=== PATIENT | male | born 1990 | race African-American/Black ===

== ENCOUNTER 2019-10-12 09:32 | Emergency (ER) | payer SELFPAY ==
[~2019-10-12] VITALS: Ht 190.5 cm; Wt 106.6 kg
[2019-10-12 09:36] VITALS: BP 119/69
[2019-10-12] MEDS ORDERED: IPRATROPIUM BROM 0.5 MG/2.5ML INH SOL NEB ONE (11:15)
[2019-10-12] MEDS ORDERED: ALBUTEROL SULF 2.5 MG/0.5ML(0.5%) NEB SOLN NEB ONE (11:15)
== END 2019-10-12 11:47 | disposition home or self-care (01) ==
LOC: ER 09:37
DX: J06.9 Acute upper respiratory infection, unspecified (principal)
CPT/HCPCS: 71046; 94640; 99283; J7611; J7644

== ENCOUNTER 2021-10-10 07:56 | Emergency (ER) | payer OTHER ==
[~2021-10-10] VITALS: Ht 190.5 cm; Wt 100.7 kg
[2021-10-10 08:17] VITALS: BP 129/89
== END 2021-10-10 08:34 | disposition home or self-care (01) ==
LOC: ER 07:56
DX: L03.317 Cellulitis of buttock (principal); F17.210 Nicotine dependence, cigarettes, uncomplicated

== ENCOUNTER 2022-03-15 06:16 | Emergency (ER) | payer OTHER ==
[~2022-03-15] VITALS: Ht 190.5 cm; Wt 98.9 kg
[2022-03-15 07:18] VITALS: BP 122/72
[2022-03-15] MEDS ORDERED: LIDOCAINE 1% HCL (LOCAL ANESTH.) INJ 20ML MDV ONE (08:00)
[2022-03-15] MEDS ORDERED: LIDOCAINE 1% HCL (LOCAL ANESTH.) INJ 20ML MDV IJ ONE (08:00)
[2022-03-15] MEDS ORDERED: CEPH-509 PO (08:18)
[2022-03-15] MEDS ORDERED: IBUP800T26 PO (08:21)
== END 2022-03-15 08:37 | disposition home or self-care (01) ==
LOC: ER 06:16
DX: L03.317 Cellulitis of buttock (principal); F17.210 Nicotine dependence, cigarettes, uncomplicated
CPT/HCPCS: 10060; 99283; J2001

== ENCOUNTER 2022-05-01 08:37 | Emergency (ER) | payer OTHER ==
[~2022-05-01] VITALS: Ht 190.5 cm; Wt 113.4 kg
[~2022-05-01 08:37] MED LIST: CEPH-509 PO; IBUP800T26 PO
[2022-05-01 09:22] VITALS: BP 136/80
== END 2022-05-01 10:15 | disposition home or self-care (01) ==
LOC: ER 08:37
DX: S60.212A Contusion of left wrist, initial encounter (principal); F17.210 Nicotine dependence, cigarettes, uncomplicated; W22.8XXA Striking against or struck by other objects, initial encounter; Y93.89 Activity, other specified; Y92.89 Other specified places as the place of occurrence of the external cause; Y99.8 Other external cause status
CPT/HCPCS: 73110